=== PATIENT | male | born 1940 | race Caucasian/White ===

== ENCOUNTER 2017-07-01 06:49 | Day surgery (SDC) | payer MEDICARE, BC ==
[2017-06-30 12:31] VITALS: BMI 26.9
[~2017-07-01 06:49] MED LIST: FLU VACC TS2017-18 (>65YR) 0.5 ML SYRINGE IM ONE; Prevnar 13-Val Conj/PF 0.5 ML SYRINGE IM ONE
[2017-07-01 08:06] VITALS: BP 144/72; TEMP 98.4
--- NOTE | 2017-07-01 10:58 | RAD ---
LUMBAR AND CERVICAL SPINE MYELOGRAM: Date: 07-01-17 History: Radiculopathy and pain. Prior cervical spine and lumbar spine surgery. FINDINGS: Informed consent for myelogram obtained prior to the procedure. Bottom Scrubber imaging of the lumbar spine demonstrates bilateral L4, L5, and S1 pedicle screws with verticall y and horizontally oriented interlocking rods. There is evidence of multilevel bilateral laminectomy throughout the lumbar spine. There is severe degenerative change at the L1-2 level with disc space na rrowing, degenerative endplate change and osteophyte formation and a vacuum disc. The lateral imaging demonstrates mild retrolisthesis at T12-L1, L1-2 and L2-3. Bottom Scrubber imaging of the cervical spine demonstrates anterior discectomy and fusion hardware from C3-4 le sweta through C6-7 level. There is mild anterolisthesis of C2 on C3 measuring in the 3-4 mm range. No p revertebral soft tissue swelling or evidence of hardware failure. The patient was placed on the fluoro table in the prone position and skin overlying the lumbar spine was prepped and draped in normal sterile fashion. Skin overlying the lower lumbar spine was anestheti zed with 1% buffered Lidocaine. With intermittent fluoroscopic guidance, a 22 gauge spinal needle was advanced into the thecal sac at the L4 level and removal of the stylet yields clear cerebral spinal fluid. Subsequently, approximate ly 12 cc of Isovue 300 was injected, outlining nerve roots of the cauda equina and filling the thecal sac. Needle was removed. Patient's head was tilted down to extend some of the contrast media into th e cervical region. Then, the patient was sent to CT scanner for CT myelogram of the cervical spine and lumbar spine. IMPRESSION: Severe degenerative change of the lumbar spine. Multilevel post-operative change within cervical spin e and lumbar spine. Successful cervical and lumbar myelogram. POS: [facility]
--- NOTE | 2017-07-01 11:34 | CT ---
CT MYELOGRAM OF THE CERVICAL SPINE: Date: 07-01-17 Comparison: None. History: Bilateral upper extremity radiculopathy and pain. Technique: Serial axial CT imaging at 2.5 mm intervals obtained from skull base through lung apices f ollowing the intrathecal administration of contrast media. Coronal and sagittal reformatted imaging obtained. FINDINGS: The imaged lung apices are grossly unremarkable. Imaged paranasal sinuses/mastoid air cells are well aerated. Occipital condyles, dens, C1-2 articulation and atlantoaxial interspace demonstrate no acute findings . There is moderate degenerative change at the atlantoaxial interspace with a mild to moderate degree of degenerative panus posterior to the C2 vertebral body. Anterior fusion hardware, composed of a ventral plate with multiple screws noted at C3-4, C4-5, C5-6 and C6-7 levels, too screws noted at C3 and C7, and one right sided screw noted at C4, C5, and C6. Th ere appears to be a fibular graft which spans C3 through C7 levels. C2-3: There is disc space narrowing and disc bulge. There is anterolisthesis measuring in the 3 mm ra nge. There is prominent facet and uncal vertebral osteophyte formation on the right and mild left fac et and uncal vertebral osteophyte formation. There is severe neural foraminal stenosis on the right and there is severe central canal stenosis wit h mild cord flattening. Mild left neural foraminal stenosis. C3-4: Mild bilateral facet and uncal vertebral osteophyte formation. Mild bilateral neural foraminal stenosis. Mild central canal stenosis. C4-5: Bilateral facet and uncal vertebral osteophyte formation noted with mild bilateral neural kilo inal stenosis. No central canal stenosis. C5-6: Bilateral facet hypertrophy. Mild posterior osteophyte formation. Mild bilateral foraminal sten osis, left greater than right. No significant central canal stenosis. C6-7: Bilateral facet and uncal vertebral osteophyte formation noted with moderate bilateral neural f oraminal stenosis. No significant central canal stenosis. C7-T1: Facet and uncal vertebral osteophyte formation causes moderate bilateral neural foraminal sten osis. There is anterolisthesis measuring approximately 4 mm with mild central canal stenosis. At T1-2, T2-3, T3-4, and T4-5 there is degenerative endplate change with disc space narrowing and sma ll disc osteophyte complexes causing a mild degree of stenosis at all of these levels. No acute osseous abnormality. No worrisome lytic or blastic bone lesion. There are scattered areas of atherosclerotic calcification noted within the carotid system, most prom inent at the level of the distal CCA and proximal ICA on the left. IMPRESSION: There is extensive post-operative and degenerative change present within the cervical spine. The most significant area of central canal and neural foraminal stenosis is the C2-3 level where there is sev ere central canal stenosis and severe right neural foraminal stenosis. There is cord flattening at th is level. POS: [facility]
[2017-07-01] MEDS ORDERED: Iopamidol-M 300 61% 15 ML VIAL ONE (14:07)
--- NOTE | 2017-07-02 07:32 | CT ---
LUMBAR SPINE CT MYELOGRAM: 07/01/2017 HISTORY: Bilateral radiculopathy. Back pain. COMPARISON: None. TECHNIQUE: Following the intrathecal administration of Isovue-300, serial axial CT imaging is obtained at 2.5 mm intervals through the lumbar spine. Coronal and sagittal reformatted imaging obtained. FINDINGS: The imaged nonosseous structures are limited in assessment without contrast media. There are scatter ed areas of atherosclerotic calcification involving the abdominal aorta and its branches. Scattered punctate calcifications are seen within the pancreas. Five lumbar type vertebral bodies are present, the conus medullaris terminating at the L1-L2 level. At T12-L1, there is mild retrolisthesis, measuring in the 3 mm range. At L1-L2, there is mild retrol isthesis, measuring in the 2-3 mm range. There is anterolisthesis of L4 on L5, measuring 1 cm. Bilateral pedicle screws are present at S1, L5, and L4, with horizontally and vertically oriented int erlocking rods. The pedicle screw on the right, at L4, is lateral to the mid portion of the pedicle, overlying the lateral cortex of the pedicle on the right. There is evidence of bilateral laminectomy at L1, L2, L3, L4, and L5. At T11-T12, there is disk space narrowing, disk bulge, anterior osteophyte formation, and vacuum disk formation, with a moderate degree of central canal stenosis, on the basis of ligamentum flavum hyper trophy and disk bulge. Mild to moderate bilateral neural foraminal stenosis noted as well. At T12-L1, there is prominent bilateral facet hypertrophy. There is disk space narrowing and vacuum disk formation with a disk osteophyte complex. There is prominent bilateral facet hypertrophy. Ther e is moderate bilateral neural foraminal stenosis. No significant central canal stenosis. At L1-L2, there is disk space narrowing and vacuum disk formation with a prominent disk osteophyte co mplex causing severe central canal stenosis. There is prominent bilateral facet hypertrophy as well, with moderate to severe right and severe left neural foraminal stenosis. At L2-L3, there is disk space narrowing with a vacuum disk. There is a disk osteophyte complex. the re is bilateral facet hypertrophy with moderate bilateral neural foraminal stenosis. No central zoe l stenosis. At L3-L4, there is disk space narrowing and bilateral facet hypertrophy with no significant central c anal or neural foraminal stenosis. At L4-L5, there is bilateral facet hypertrophy. There is mild bilateral neural foraminal stenosis. There is no central canal stenosis. At L5-S1, there is disk space narrowing and anterior osteophyte formation noted. There is osteophyte encroachment on the neural foramina, right greater than left, with moderate right and mild left neur al foraminal stenosis. No significant central canal stenosis. The bones appear demineralized. No worrisome lytic or blastic bone lesion. No fracture or dislocati on. There is degenerative dextroscoliosis of the lumbar spine. IMPRESSION: Multilevel postoperative change within the lumbar spine. There is severe lower thoracic and upper eliana mbar spine degenerative change present, the most prominent at L1-L2, with severe neural foraminal sharri nosis and central canal stenosis, as detailed above. POS: [facility]
== END 2017-07-01 10:00 | disposition home or self-care (01) ==
LOC: RAD 06:49
PROVIDERS: ATTEND Neurological Surgery
PROC: B00B1ZZ Plain Radiography of Spinal Cord using Low Osmolar Contrast (ICD-10-PCS; principal; 2017-07-01)
DX: M54.12 Radiculopathy, cervical region (principal); M54.16 Radiculopathy, lumbar region; G56.02 Carpal tunnel syndrome, left upper limb; G56.01 Carpal tunnel syndrome, right upper limb; M19.90 Unspecified osteoarthritis, unspecified site; E78.00 Pure hypercholesterolemia, unspecified; G25.81 Restless legs syndrome; Z88.2 Allergy status to sulfonamides
CPT/HCPCS: 62305; 72126; 72132

== ENCOUNTER 2017-07-18 06:08 | Day surgery (SDC) | payer MEDICARE, BC ==
[2017-07-17 09:00] VITALS: BMI 25.8
--- NOTE | 2017-07-18 01:14 | HP ---
HISTORY OF PRESENT ILLNESS: Mr. Michelle is a patient known to our practice for previous neck and low back problems, who returns today with severe low back pain that appears to radiate in an L3 fashion d own the left lower extremity and also potentially appears to be meralgia paresthetica. Additionally, he complains of bilateral hand numbness and cramping with a history of cervical spine problems in th e past. He has a CT myelogram that shows severe central canal stenosis around the spinal cord at C2- 3 that certainly accounts for a lot of his symptoms that he is experiencing. Additionally, he has ad jacent segment disease in his lumbar spine above his fusion site; however, I think the cervical steno sis explained the majority of his symptoms. He is here to discuss possible surgical treatment. PAST MEDICAL HISTORY: Irregular heartbeat, hypercholesterolemia, restless leg syndrome, prostate can cer, spinal and neck disease, arthritis. ALLERGIES: SULFA. PHYSICAL EXAMINATION: The patient is alert and oriented x3. Gait is altered and antalgic. Lower ex tremity motor exam is normal. He has a negative straight leg raise. Upper extremity exam is also no rmal. CURRENT MEDICATIONS: Atorvastatin, metoprolol, fenofibrate, baclofen, ibuprofen, fexofenadine, napro xen, and Benadryl. ALLERGIES: SULFA. ASSESSMENT: Cervical stenosis. PLAN: Dr. Douglas met with the patient, reviewed imaging and ultimately advocated for a posterior cerv ical decompression at C2-3. He explained to the patient the risks, benefits, and alternatives to the procedure. The patient expressed understanding and would like to move forward with surgery as discu ssed. I do believe the patient is mentally competent and capable of making medical decisions for him self and we will move forward with surgery as planned.
[2017-07-18] MEDS ORDERED: Fentanyl 100 MCG/2 ML VIAL ONE ×2 (06:14→09:05)
[2017-07-18] MEDS ORDERED: Lidocaine 2% Jelly 5 ML TUBE ONE (06:24)
[2017-07-18] MEDS ORDERED: Thrombin 5000 UNITS/5 ML VIAL ONE (06:44)
[2017-07-18] MEDS ORDERED: CEFAZOLIN/Water 2 GM/20 ML SYRINGE ONE ×2 (06:52→11:32)
[2017-07-18] MEDS ORDERED: Bupivacaine PF 0.5% 30 ML VIAL ONE (08:09)
[2017-07-18] MEDS ORDERED: Bacitracin Zinc Ointment 30 gm TUBE ONE (08:16)
[2017-07-18] MEDS ORDERED: Tamsulosin HCl 0.4 MG CAP ONE (08:54)
[2017-07-18] MEDS ORDERED: Acetaminophen/Codeine 30-300mg Tablet ONE (10:10)
--- NOTE | 2017-07-18 11:34 | OP ---
DATE OF PROCEDURE: 07/18/2017 SURGEON: Zane Douglas M.D. BACK CLOSER: Nikko Jameson PA-C. INDICATION: Prevent neurologic decline. DIAGNOSIS: Cervical spondylytic myelopathy. PROCEDURE: Posterior cervical laminectomy C2-C3. ANESTHESIA: General. PROCEDURE IN DETAIL: The patient was brought into the operating room and placed under general anesth esia. He was flipped from a supine to a prone position while maintaining neutrality of his neck. A posterior cervical incision was planned over the C2-C3 segment. After prepping and draping and after an appropriate operative pause, the incision was created. The soft tissues were swept away from mid line. Self-retaining retractors were put into the wound for optimal exposure. After confirming the appropriate level with C-arm fluoroscopy, an Adson rongeur as well as a high-speed cutting drill bit as well as 1 and 2 mm Kerrisons were used to perform a laminectomy at the C2-C3 segment until the cer vical canal was decompressed. The wound was irrigated. Hemostasis was maintained throughout. The w ound was then closed in anatomic layers and a pressure dressing was applied. There were no known pro cedural complications.
[2017-07-18] MEDS ORDERED: Glycopyrrolate 0.2 MG/ML 5 ML SYRINGE ONE (14:11)
[2017-07-18] MEDS ORDERED: Dexamethasone 20 MG/5 ML VIAL ONE (14:11)
[2017-07-18] MEDS ORDERED: Lidocaine 1% PF 5 ML VIAL ONE (14:11)
[2017-07-18] MEDS ORDERED: ePHEDrine/0.9% NaCl/PF SYRINGE 50 mg/10 ml ONE (14:11)
[2017-07-18] MEDS ORDERED: Propofol 200 MG/20 ML VIAL ONE (14:11)
[2017-07-18] MEDS ORDERED: PHENYLEPHRINE-NS 100 MCG/ML 10 ML SYRINGE ONE (14:11)
[2017-07-18] MEDS ORDERED: Ondansetron HCl/PF 4 MG/2 ML Vial ONE (14:11)
== END 2017-07-18 12:08 | disposition home or self-care (01) ==
LOC: SDC 06:08
PROVIDERS: ATTEND Neurological Surgery
PROC: 00NW0ZZ Release Cervical Spinal Cord, Open Approach (ICD-10-PCS; principal; 2017-07-18)
DX: M47.12 Other spondylosis with myelopathy, cervical region (principal); E78.00 Pure hypercholesterolemia, unspecified; G25.81 Restless legs syndrome; M19.90 Unspecified osteoarthritis, unspecified site; Z79.1 Long term (current) use of non-steroidal anti-inflammatories (NSAID); Z79.899 Other long term (current) drug therapy; Z88.2 Allergy status to sulfonamides; Z90.79 Acquired absence of other genital organ(s); Z98.890 Other specified postprocedural states; Z85.46 Personal history of malignant neoplasm of prostate
CPT/HCPCS: 76001; 96374; J1100; J2001; J2270; J2405; J2704; J3010; S0020

== ENCOUNTER 2018-09-22 10:54 | Emergency (ER) | payer MEDICARE, BC ==
[2018-09-22] MEDS ORDERED: HYDROcodone/Acetaminophen 5/325 mg Tablet ONE (12:12)
--- NOTE | 2018-09-22 12:42 | CT ---
CT PELVIS WITHOUT CONTRAST: HISTORY: The patient bent over a mower and has back and pelvic pain. Pain going down legs. FINDINGS: Extensive postoperative changes of the lumbar spine are seen. These findings will be described in th at CT report. There is a defect in the left iliac bone, which is compatible with the donor site, rel ated to back surgery. An area of bony exostosis along the right iliac crest is incidentally seen. T he pelvic ring is intact. There are no signs of fracture. There is a small, corticated, bony densit y adjacent to the symphysis, which is not felt to be related to any type of acute injury. There appe ar to be postop changes of prostate surgery. There are no pelvic fluid collections or masses. IMPRESSION: 1. No signs of any acute fracture of the bony pelvic ring. 2. Extensive postoperative changes of the lower lumbar spine are partially visualized on this examin ation. Please refer to the CT report of the lumbar spine concerning these findings. POS: [facility]
--- NOTE | 2018-09-22 12:54 | CT ---
EXAM: CT Lumbar Spine WO Con PROVIDED CLINICAL HISTORY: Low back pain. History of prior low back surgery. COMPARISON: CT lumbar spine myelogram 07/01/2017. FINDINGS: Vascular calcifications are seen in the abdominal aorta and involving the iliac arteries. The remaind er of the limited visualized retroperitoneal structures demonstrate grossly normal nonenhanced CT appearance. Multilevel degenerative changes as well as postsurgical changes lumbar spine are again seen. Bipedicu lar screws and posterior rods transfix the L4-5 and L5-S1 levels. The pedicle screw on the right at L4 is lateral to the midportion of the pedicle overlying the lateral cortex of the pedicle on the rig ht. This is a stable finding. Minimal lucency is seen around the screws within the S1 vertebral body, stable from prior exam. No other hardware complication is seen. T11-12 level: There is vacuum phenomenon present. There is a disc osteophyte complex noted. There is disc space narrowing and vacuum phenomenon present. Disc osteophyte complex is present. Laminectomy defect is seen posteriorly. There is mild effacement of ventral subarachnoid space. Mild bilateral ne ural foraminal narrowing is present. T12-L1 level: Mild retrolisthesis is again present. Laminectomy defect is seen posteriorly. Moderate bilateral neural foraminal narrowing is again seen. No significant central canal stenosis is present. L1-2 level: Again noted is disc space narrowing and vacuum disc phenomenon again present with promine nt disc osteophyte complex again noted. Facet hypertrophic changes are noted. There is evidence of laminectomy defect. Findings result in moderate right and severe left-sided neural foraminal narrowin g. Laminectomy defect is noted at this level. L2-3 level: Laminectomy defect is present at this level. There is loss of intervertebral disc height with evidence of vacuum phenomenon. Broad-based disc osteophyte complex is again present. There is a gas density seen in the right anterolateral aspect of the central canal which may represent a small sequestered disc fragment; this is located just posterior to the superior endplate of the L3 vertebral body. This was also present on prior exam. Facet hypertrophic changes are present at this l evel. There is mild narrowing of the central spinal canal with moderate bilateral neural foraminal narrowing. L3-4 level: There is narrowing of the intervertebral disc space. Posterior osteophyte formation is pr esent. Central spinal canal and neural foramina demonstrate no significant narrowing. L4-5 level: There is grade 1 anterolisthesis of L4 on L5. Disc osteophyte complex is present. There i s artifact from metallic hardware and transverse bar at this level, but there is no significant encroachment involving the central spinal canal. There is mild right-sided neural foraminal narrowing , but the left neural foramen demonstrates no significant narrowing. L5-S1 level: There is loss of intervertebral disc height. There is slight retrolisthesis of L5 on S1. Facet hypertrophic changes are present at this level. Although there is artifact limiting evaluation, the central canal does not appear to be significantly narrowed. However, there does appea r to be moderate right and mild left-sided neural foraminal narrowing similar to the prior exam. Mild right convex scoliosis lumbar spine is again present. IMPRESSION: Multilevel degenerative changes lumbar spine in addition to stable postoperative changes. The degener ative changes within the lumbar spine have not significantly progressed when compared to prior exam.
== END 2018-09-22 13:17 | disposition home or self-care (01) ==
LOC: ERS 10:54
DX: M54.5 Low back pain (principal); E78.5 Hyperlipidemia, unspecified; Z79.899 Other long term (current) drug therapy
CPT/HCPCS: 72131; 72192

== ENCOUNTER 2018-10-09 06:57 | Outpatient (CLI) | payer MEDICARE, BC ==
--- NOTE | 2018-10-09 11:04 | MRI ---
MRI LUMBAR SPINE WITH AND WITHOUT CONTRAST: INDICATIONS: Lumbar myelopathy. History of prior surgery. COMPARISON: Prior MRI lumbar spine, dated 08/23/2013. CORRELATION: Recent CT lumbar spine, dated 09/22/2018. TECHNIQUE: Multiplanar, multisequential imaging of the lumbar spine obtained. Post contrast images obtained wit h the administration of MultiHance IV. FINDINGS: Moderate to severe degenerative changes seen in the lower thoracic and upper lumbar spine. Large ant erior and lateral osteophytes are present with degenerative disk and endplate changes seen at the T11 -T12, T12-L1, L1-L2, and L2-L3 levels. There is anterior wedging of T11, T12, and L1. There is post erior listhesis at T12-L1 and at L1-L2, as demonstrated on the CT of 09/22/2018. The degenerative changes at these levels has progressed when compared to 2013. At T12-L1, posterior disk bulge is prominent. Posterior laminectomy changes are noted. There is harvinder ateral foraminal stenosis, more prominent on the right. At L1-L2, there is posterolisthesis, described on recent CT. Posterior disk bulge. Posterior yaa ctomy change. Moderate central canal stenosis; bilateral foraminal stenosis. At the L2-L3 level, there is mild posterolisthesis. Broad-based disk bulge. Facet hypertrophy. Pos terior laminectomy change. No significant central canal stenosis. Bilateral foraminal stenosis. At L3-L4, mild disk bulge. Posterior laminectomy change. No significant central canal stenosis. Bi lateral foraminal stenosis. At L4-L5, anterolisthesis. Diffuse disk bulge. Posterior laminectomy change. No significant centra l canal stenosis. There is right foraminal stenosis secondary to disk osteophyte complex and facet h ypertrophy. At L5-S1, minimal disk bulge. Facet hypertrophy. No significant central canal stenosis. Bilateral foraminal stenosis secondary to disk osteophyte and facet hypertrophy, encroaching into the foramina bilaterally. Pedicle screws at L4, L5, and S1 are better delineated on recent CT. IMPRESSION: 1. Degenerative changes of the lumbar spine. Degenerative changes in the lower thoracic and upper l umbar spine have progressed significantly since the prior MRI, as noted above. See recent CT lumbar spine from 09/22/2018 for comparative findings. 2. Significant foraminal stenosis in the lower thoracic and upper lumbar spine noted, as described a yolanda. POS: [facility]
[2018-10-09] MEDS ORDERED: Gadobenate Dimeglumine 529 MG/1 ML (20ML VIAL) ONE (16:48)
== END 2018-10-09 06:58 | disposition home or self-care (01) ==
LOC: MRI 06:57
PROVIDERS: ATTEND Neurological Surgery
DX: M47.16 Other spondylosis with myelopathy, lumbar region (principal); M47.814 Spondylosis without myelopathy or radiculopathy, thoracic region; M48.061 Spinal stenosis, lumbar region without neurogenic claudication; M48.04 Spinal stenosis, thoracic region; M48.07 Spinal stenosis, lumbosacral region; M48.05 Spinal stenosis, thoracolumbar region
CPT/HCPCS: 72158; 82565; A9577

== ENCOUNTER 2018-10-14 08:31 | Day surgery (SDC) | payer MEDICARE, BC ==
[2018-10-13 16:08] VITALS: BMI 27.0
[2018-10-14] MEDS ORDERED: Bupivacaine HCl 0.5%/Epinephrine 1:200,000/PF 30 ml Vial ONE (08:50)
[2018-10-14] MEDS ORDERED: Fentanyl 100 MCG/2 ML VIAL ONE ×2 (09:29→11:55)
--- NOTE | 2018-10-14 09:57 | PRG ---
DATE OF SERVICE: 10/14/2018 I met with Mr. Michelle and his in the day stay area. I had reviewed with them again his diagnosis, surgical plan, and anticipated recovery. He has thoracic myelopathy. His and he state that he especially over the past 2 to 3 weeks , had a very unsteady gait with a predisposition toward falls and has been using a walker with progressive lower extremity weakness and numbness. He has a high-grade thoracic stenosis at T10-T11 with what is likely signal change in the cord. He has a history of prior lumbar fusions and he has scoliosis and lumbar degenerative spine disease in the lumbar segments, but as I have explained to Mr. Michelle, I believe those are not the culprit in his current condition or in his current state of progressive neurologic decline. This is what I had shared with him on the phone on a prior conversation as well. His has some concerns about him going home given his fall risk and his progression. As such, I believe it would be in his best interest to undergo a rehab evaluation. We will facilitate that today. I reviewed again all of the risks, benefits, and alternatives to treatment. They understand and wished to move forward with surgery. Job ID: [id number] MTDD
[2018-10-14] MEDS ORDERED: Tamsulosin HCl 0.4 MG CAP ONE (12:10)
[2018-10-14] MEDS ORDERED: Ketorolac Tromethamine 30 MG/ML VIAL ONE (16:33)
[2018-10-14] MEDS ORDERED: Rocuronium Bromide 10 MG/ML (10ML VIAL) ONE (16:33)
[2018-10-14] MEDS ORDERED: Glycopyrrolate 0.2 MG/ML 5 ML SYRINGE ONE (16:33)
[2018-10-14] MEDS ORDERED: Dexamethasone 20 MG/5 ML VIAL ONE (16:33)
[2018-10-14] MEDS ORDERED: PROPOFOL 200 MG/20 ML VIAL ONE (16:33)
[2018-10-14] MEDS ORDERED: Ondansetron PF 4 MG/2 ML Vial ONE (16:33)
[2018-10-14] MEDS ORDERED: Lidocaine 1% PF 5 ML VIAL ONE (16:33)
--- NOTE | 2018-10-14 18:26 | OP ---
DATE OF PROCEDURE: 10/14/2018 RO[address] MONKEY: Nikko Jameson PA-C INDICATION: Weakness and progressive neurologic dysfunction. 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 PROCEDURE PERFORMED: T10-11 decompression. ANESTHESIA: General. DESCRIPTION OF PROCEDURE: The patient was brought into the operating room and placed under general anesthesia. He was flipped from the supine to prone position on the operating room table. A linear incision was planned over T10-T11. After prepping and draping and after an appropriate pause, incision was created. The soft tissues were swept away from midline. A self-retaining retractor was placed in the wound for optimal exposure. After confirming the appropriate level with C-arm fluoroscopy in lateral and AP planes, an Adson rongeur was used to remove the spinous process along the inferior aspect of T10 and superior aspect of T11. High-speed cutting drill bit as well as 1 and 2 mm Kerrisons were then used to complete the laminectomy in order to decompress the T10-T11 segment. The wound was irrigated. Hemostasis was maintained throughout. The wound was then closed in anatomic layers and a pressure dressing was applied. There were no known procedural complications. Job ID: [id number]
== END 2018-10-14 18:10 | disposition home or self-care (01) ==
LOC: SDC 08:31
PROVIDERS: ATTEND Neurological Surgery
PROC: 00NX0ZZ Release Thoracic Spinal Cord, Open Approach (ICD-10-PCS; principal; 2018-10-14)
DX: M48.04 Spinal stenosis, thoracic region (principal); G95.9 Disease of spinal cord, unspecified; M47.16 Other spondylosis with myelopathy, lumbar region; E78.00 Pure hypercholesterolemia, unspecified; G25.81 Restless legs syndrome; M19.90 Unspecified osteoarthritis, unspecified site; Z88.2 Allergy status to sulfonamides
CPT/HCPCS: 76000; 93005; 93010; J0670; J0690; J1100; J1885; J2001; J2405; J2704; J3010

== ENCOUNTER 2019-01-21 14:13 | Outpatient (CLI) | payer MEDICARE, BC ==
--- NOTE | 2019-01-21 15:35 | MRI ---
Exam: MRI thoracic spine without contrast HISTORY: Thoracic myelopathy COMPARISON: None FINDINGS: There is appropriate T1 marrow signal intensity thoracic vertebra. There are type I and type II Modic changes at T10-T11 and T11-T12. There is posterior laminectomy defect at T10-T11, T11-T12 and presumed to be at T12-L1 Appropriate signal intensity visualized solid organs, lung parenchyma and mediastinum Thoracic cord has a normal size and signal intensity. No cord malacia. No cord expansion. No abnormal T2 hyperintensity in the thoracic cord. The terminus of the cord is difficult to appreciate on the current exam. T1-T2: Mild central canal stenosis secondary to left and right paracentral disc bulges T2-T3: Mild central canal stenosis secondary left and right paracentral disc bulges T3.-T4: Mild central canal stenosis secondary to left and right paracentral disc bulges T4-T5: Mild central canal stenosis secondary to left and right paracentral disc bulges T5-T6: Mild central canal stenosis secondary to left and right paracentral disc bulges T6-C7: Mild central canal stenosis due to left and right paracentral disc bulge T7-T8: Moderate central canal stenosis secondary to left and right paracentral disc bulge T8-T9L Broad-based disc bulge with moderate central canal stenosis. T9-T10: Left paracentral disc bulge. Mild to moderate central canal stenosis Posterior to the T10 vertebral body, there is a abnormal soft tissue signal intensity along the anter ior right epidural space. A intensity measures 1.0 x 0.6 cm. There is severe central canal stenosis of the midportion of T10. This abnormal signal extends into the T10-T11 level where there is severe central canal stenosis. Findings likely represent disc material with superior, right paracentral disc extrusion. At the T10-T11 disc space, moderate central canal stenosis. Laminectomy defect is identified. T11-T12: Broad-based disc bulge, ligament flavum thickening and facet hypertrophy result in moderate central canal stenosis. T12-L1: Laminectomy defect. Mild central canal stenosis IMPRESSION: 1. Multilevel degenerative change of the thoracic spine as above. There appears to be a superiorly ex truded disc at the T10-T11 level. There is resultant severe central canal stenosis at the mid T10 level extending down to the T10-T11 disc space. 2. Additional significant central canal stenosis as detailed above. Transcribed Date/Time: 01/21/2019 3:59 PM
== END 2019-01-21 14:14 | disposition home or self-care (01) ==
LOC: TBSIIMAG 14:13
PROVIDERS: ATTEND Neurological Surgery
DX: M47.14 Other spondylosis with myelopathy, thoracic region (principal); M48.04 Spinal stenosis, thoracic region; M48.05 Spinal stenosis, thoracolumbar region
CPT/HCPCS: 72146

== ENCOUNTER 2019-01-29 08:07 | Day surgery (SDC) | payer MEDICARE, BC ==
--- NOTE | 2019-01-28 12:54 | HP ---
HISTORY OF PRESENT ILLNESS: Mr. Michelle is a pleasant 78-year-old gentleman known to us for prior thoracic decompression at T10 earlier this year in October, who returns now with roughly 3 weeks worth of progressive neurologic decline with his bilateral lower extremities. A new MRI was performed on January 21 of the thoracic spine, which reveals new thoracic disk herniation at T10 at the same level of his prior surgical site with profound central canal stenosis that would very likely explain this. He hopes to move forward with surgery to treat this as soon as possible given his neurologic symptoms. PAST MEDICAL HISTORY: Significant for hypercholesterolemia, arthritis, seasonal allergies, and prostate cancer. PAST SURGICAL HISTORY: Prostatectomy and thoracic decompression. MEDICATIONS: Atorvastatin, metoprolol, fenofibrate, baclofen, ibuprofen, and fexofenadine. ALLERGIES: SULFA DRUGS. PHYSICAL EXAMINATION: GENERAL: The patient is alert and oriented x3. NEURO: Gait is significantly altered and weakened. Lower extremity motor exam exhibits 4/5 strength in all muscle movements. ASSESSMENT: Thoracic root stenosis with myelopathy. PLAN: Dr. Douglas met with the patient, reviewed imaging, and advocated for T10 diskectomy. He explained to the patient the risks, benefits, and alternatives to the procedure. The patient expressed understanding and elected to move forward with surgery as discussed. I do believe the patient is mentally competent and capable of making medical decisions for himself. We will move forward with surgery as planned. Job ID: [id number]
[2019-01-28 14:41] VITALS: BMI 25.0
[2019-01-29] MEDS ORDERED: Fentanyl 100 MCG/2 ML VIAL ONE (09:18)
[2019-01-29 09:23] LABS: Hemoglobin 12.1 g/dL (14.0-18.0); Mean Corpuscular HGB CONC 34.3 g/dL (32.0-36.0); Mean Corpuscular Hemoglobin 31.8 pg (27.0-31.0); Mean Corpuscular Volume 92.7 fL (78.0-98.0); Mean Platelet Volume 6.5 fL (7.4-10.4); Platelet Count 249 thou/uL (130-400); RBC Distribution Width 14.1 % (11.5-14.5); Red Blood Cell (RBC) Count 3.81 mill/uL (4.70-6.10); White Blood Cell (WBC) Count 4.9 thou/uL (4.8-10.8)
[2019-01-29] MEDS ORDERED: Thrombin 5000 UNITS/5 ML VIAL ONE (09:27)
[2019-01-29] MEDS ORDERED: Bupivacaine HCl 0.5%/Epinephrine 1:200,000/PF 30 ml Vial ONE (09:27)
[2019-01-29 09:56] LABS: Anion Gap 10 mmol/L (10-20); BUN (Urea Nitrogen) 18 mg/dL (8.4-25.7); Calc. Creatinine Clearance 67 mL/min (70-130); Calcium 9.2 mg/dL (7.8-10.44); Carbon Dioxide 25 mmol/L (23-31); Chloride 105 mmol/L (98-107); Estimated GFR-MDRD 77; Glucose 98 mg/dL (83-110); Potassium 4.1 mmol/L (3.5-5.1); Sodium 136 mmol/L (136-145)
[2019-01-29] MEDS ORDERED: Tamsulosin HCl 0.4 MG CAP ONE (12:13)
[2019-01-29] MEDS ORDERED: Succinylcholine Chloride 20 MG/ML 10 ml SYRINGE FS ONE (16:12)
[2019-01-29] MEDS ORDERED: Dexamethasone 20 MG/5 ML VIAL ONE (16:12)
[2019-01-29] MEDS ORDERED: Labetalol HCl 100 MG/20 ML VIAL ONE (16:12)
[2019-01-29] MEDS ORDERED: Ondansetron PF 4 MG/2 ML Vial ONE (16:12)
[2019-01-29] MEDS ORDERED: Glycopyrrolate 0.2 MG/ML 5 ML SYRINGE ONE (16:12)
[2019-01-29] MEDS ORDERED: Lidocaine 1% PF 5 ML VIAL ONE (16:12)
[2019-01-29] MEDS ORDERED: PROPOFOL 200 MG/20 ML VIAL ONE (16:12)
[2019-01-29] MEDS ORDERED: ePHEDrine 50 MG/ML VIAL ONE (16:12)
--- NOTE | 2019-02-01 13:09 | OP ---
DATE OF PROCEDURE: 01/29/2019 [employer] COACH: Nikko Jameson PA-C INDICATION: Thoracic myelopathy. PROCEDURES PERFORMED: Reoperation of T10 spinal canal decompression with resection of intraspinal cyst and disk protuberance. ANESTHESIA: General. DESCRIPTION OF PROCEDURE: The patient was brought into the operating room and placed under general anesthesia. He was flipped from the supine to prone position on the operating room table. A linear incision was planned over the T10 segment, which incorporated a portion of a prior incision site. After prepping and draping and after a preoperative pause, the incision was created. The soft tissues were swept away from midline. A self-retaining retractor was placed. High-speed cutting drill bit was used to complete a laminectomy at T10 as the patient had what appeared to be a superiorly migrated disk fragment behind the body of T10 creating severe spinal canal stenosis. The laminectomy was extended particularly on the right side to encompass portion of the facet joint and portion of the pedicle. Disk material was identified and removed. There was also a cystic structure present beneath the axilla of the right T10 nerve root. The cyst was removed and sent for further analysis. At the completion of the procedure, the patient's spinal canal at the segment was well decompressed. The wound was irrigated. Hemostasis was maintained throughout. The wound was then closed in anatomic layers and a pressure dressing was applied. There were no known procedural complications. Job ID: [id number]
== END 2019-01-29 16:00 ==
LOC: SDC 08:07
PROVIDERS: ATTEND Neurological Surgery
PROC: 00BX0ZZ Excision of Thoracic Spinal Cord, Open Approach (ICD-10-PCS; principal; 2019-01-29)
DX: M51.04 Intervertebral disc disorders with myelopathy, thoracic region (principal); M48.04 Spinal stenosis, thoracic region; E78.00 Pure hypercholesterolemia, unspecified; M19.90 Unspecified osteoarthritis, unspecified site; Z79.899 Other long term (current) drug therapy; Z88.2 Allergy status to sulfonamides
CPT/HCPCS: 36415; 80048; 85027; 88304; J0670; J0690; J1100; J2001; J2405; J2704; J3010; J3490

== ENCOUNTER 2020-05-17 13:46 | Outpatient (CLI) | payer MEDICARE, BC ==
--- NOTE | 2020-05-17 18:51 | RAD ---
LUMBAR SPINE SERIES TWO VIEWS: 05/17/20 HISTORY: Low back pain. History of previous back surgery. COMPARISON: CT examination of the 07/01/17. Scoliotic change of the spine is noted. Extensive postop changes are seen. This includes laminectomy changes which appear to extend from L1 to L4. There is bilateral pedicle screws at L4, L5 and S1 with vertical and horizontal connecting rods. Severe degenerative changes along the course of the spine a re noted. Disc narrowing most pronounced at L5-S1. There is loss of vertebral body height at the L1 v ertebral body level involving the superior end plate. I believe this is more prominent than what was seen on the previous CT study. IMPRESSION: Extensive postop changes of the spine and marked arthritic change. Suggestion of some increasing loss of vertebral body height of the superior end plate of L1. POS: ROMY
== END 2020-05-17 13:47 | disposition home or self-care (01) ==
LOC: TBSIIMAG 13:46
PROVIDERS: ATTEND Neurological Surgery
DX: M54.5 Low back pain (principal); M47.816 Spondylosis without myelopathy or radiculopathy, lumbar region; Z98.890 Other specified postprocedural states
CPT/HCPCS: 72100